=== PATIENT | female | born 1950 | race Caucasian/White ===

== ENCOUNTER → 2019-09-01 06:40 | Outpatient (CLI) | payer MEDICARE, SELFPAY ==
[2016-03-13 07:15] VITALS: BMI 30.7
--- NOTE | 2019-09-01 06:52 | RAD_ITS ---
STUDY: X-RAY CHEST REASON FOR EXAM: Female, 69 years old. CHRONIC COUGH, SOB TECHNIQUE: PA and lateral views of the chest. COMPARISON: None. FINDINGS: Mild elevation of the anterior aspect of the right hemidiaphragm. Mild increased markings at the lung bases slightly worse on the left side suggestive of linear atelectasis and/or scarring. There is no demonstrated pleural abnormality. Normal size heart. Normal mediastinum and cameron. Normal visualized pulmonary arteries. Normal visualized aortic arch and descending thoracic aorta. There is demineralization of the osseous structures. Normal visualized ribs, clavicles, and shoulders. Moderate sized hiatal hernia. RAD/Chest PA and Lateral IMPRESSION: Mild bibasilar linear atelectasis and/or scarring slightly worse on the left side. Moderate-sized hiatal hernia. Electronically Signed: Parveen Tran, at 8:01 EDT , Service support ,
--- NOTE | 2019-09-02 07:06 | PFT ---
INTRODUCTION: The patient is a 69-year-old female that presents for pulmonary function studies secondary to a diagnosis of shortness of breath. Respiratory therapy reports good patient effort. Bronchodilators were used during testing. INTERPRETATION: Forced expiration spirometry demonstrates no evidence of a large airways obstructive ventilatory defect. There was no significant response to aerosolized bronchodilators, based upon strict ATS criteria. Spirograms are of good quality and plateau normally. The respiratory flow volume loop is normal. Body plethysmography was performed and reveals lung volumes to be within normal limits. Diffusing capacity by single breath CO is also within normal limits. IMPRESSION: Grossly normal pulmonary function studies.
== END ==
PROVIDERS: PCP Family Medicine; Referring Provider Nurse Practitioner Family; Visit Provider Nurse Practitioner Family
DX: R06.02 Shortness of breath (principal); R05 Cough
CPT/HCPCS: 71046; 94060; 94726; 94729